=== PATIENT | female | born 1945 | race Caucasian/White ===

== ENCOUNTER 2018-05-27 16:22 | Emergency (ER) | payer OTHER ==
[~2018-05-27] VITALS: Ht 160 cm; Wt 70.8 kg
[~2018-05-27 16:22] MED LIST: ACETAMINOPHEN-1 EAC1 PO; BRIMONIDINE TAR1 BO1 OP; CIPRO500 MG PO; FLAGYL500 MG PO; FLEXERIL PO; MEDROLDOSEPACK PO; NORCO 5-325 TA1 EACH PO; PENICILLIN V P500 MG PO; XANAX 0.5 MG0.5 MG PO
[2018-05-27] MEDS ORDERED: NORCO 5-325 TA1 EACH PO (16:48)
[2018-05-27 16:51] LABS: ABSOLUTE EOSINOPHILS 0.2 thou/uL (0.0-0.7); ABSOLUTE LYMPHOCYTES 2.6 thou/uL (0.8-5.3); ABSOLUTE MONOCYTES 0.5 thou/uL (0.0-1.2); ABSOLUTE NEUTROPHILS 3.3 thou/uL (1.6-8.1); BASOPHILS 0.2 %; EOSINOPHILS 2.5 %; HEMATOCRIT 37.4 % (37.0-47.0); HEMOGLOBIN 12.5 gm/dL (12.0-15.0); LYMPHOCYTES 39.4 %; MCH 30.7 pg (26.0-34.0); MCHC 33.5 g/dL (28.0-37.0); MCV 91.5 fL (80.0-100.0); MPV 8.9 fl. (7.2-11.1); NUCLEATED RBCS 0 /100WBC; PLATELET COUNT* 326 thou/uL (150-400); POLYS 49.9 %; RBC 4.08 mil/uL (4.20-5.00); RDW-CV 14.3 % (10.5-14.5); WBC 6.7 thou/uL (4.0-11.0)
[2018-05-27 17:00] LABS: ANION GAP 10 mmol/L (7-16); BUN 13 mg/dL (7-18); CALCIUM 9.4 mg/dL (8.5-10.1); CHLORIDE 102 mmol/L (98-107); CO2 27 mmol/L (21-32); CREATININE 0.7 mg/dL (0.6-1.3); GLUCOSE 104 mg/dL (70-99); POTASSIUM 3.3 mmol/L (3.5-5.1); SODIUM 139 mmol/L (136-145)
[2018-05-27 17:10] LABS: ALBUMIN 3.9 g/dL (3.4-5.0); ALKALINE PHOSPHATASE 104 U/L (46-116); LIPASE 141 U/L (73-393); MAGNESIUM 2.1 mg/dL (1.8-2.4); NT-PRO BRAIN NAT PEPTIDE 1952 pg/mL (<300); SGOT 15 U/L (15-37); SGPT 19 U/L (30-65); TOTAL BILIRUBIN 0.3 mg/dL (<0.1-1.0); TOTAL PROTEIN 7.8 g/dL (6.4-8.2); TROPONIN-I LEVEL <0.06 ng/mL (<0.06)
[2018-05-27 18:32] VITALS: BP 132/74
--- NOTE | 2018-05-28 14:54 | EKG ---
[place] [address] ELECTROCARDIOGRAM REPORT Name: CHANGE MANAGEMENT SPECIALISTRICARDO Room: [facility]#: [id number] Admission: 05/27/18 Attend Phys: Discharge: 05/27/18 Date of : 47 Report #: [id number] THIS REPORT FOR: //name// [facility] ED Test Date: 2018-05-27 Test Time: 16:27:36 Pat Name: RICARDO GRAMAJO Department: Room: Gender: F Furniture Inspector: Chloe HOANG : 1945 Requested By: Jose De Jesus Foreman Order Number: [id number] MD: Daniel Chen Measurements Intervals [place] Rate: 94 P: 98 AK: 173 QRS: -44 QRSD: 152 T: 117 QT: 414 QTc: 518 Interpretive Statements Sinus rhythm Multiple premature complexes, vent & supraven Left bundle branch block Compared to ECG 07/14/2016 10:30:43 No significant changes Electronically Signed On 05-28-2018 14:54:09 [employer] by Daniel Chen [email or web address] <ELECTRONICALLY SIGNED> By: Daniel Chen MD, [facility] 05/28/18 1454 1627 26 Daniel Chen MD, [facility] /EPI
== END 2018-05-27 18:33 | disposition left against medical advice (07) ==
LOC: M.ERS 16:22
PROVIDERS: Emergency Medicine Emergency Medical Services
DX: R07.89 Other chest pain (principal); K58.9 Irritable bowel syndrome, unspecified; E78.5 Hyperlipidemia, unspecified; J44.9 Chronic obstructive pulmonary disease, unspecified; F17.210 Nicotine dependence, cigarettes, uncomplicated; Z90.710 Acquired absence of both cervix and uterus; Z88.1 Allergy status to other antibiotic agents; Z90.49 Acquired absence of other specified parts of digestive tract

== ENCOUNTER → 2018-08-17 | Outpatient (CLI) | payer OTHER ==
--- NOTE | 2018-08-17 11:32 | CARDNUC ---
[place] [address] CARDIAC NUCLEAR IMAGING REPORT Name: RICARDO GRAMAJO Room: [facility]#: [id number] Admission: 08/17/18 Attend Phys: Oscar Olivares, Discharge: Date of : 47 Date of Service: 08/17/18 1132 Report #: [id number] THIS REPORT FOR: //name// APPROVED REPORT Study performed: 08/17/2018 07:45:00 Indication: Chest pain, Arrythmias. Patient Location: Out-Patient Stress Tech: Harini Joseph Stress Nurse: Kathy Juan RN Ht: 5 ft 3 in Wt: 156 lbs BSA: 1.74 m2 BMI: 27.63 Medical History Medical History: Angina, Arrhythmia, COPD, Current Smoker, No history of CAD, SOB, LBBB, Alcoholism. Medications: N/A Allergies: Erythromycin, Levofloxacin, Ciprofloxacin, Bimatoprost, Simvastatin, Citalopram. Cardiac Risk Factors: Age, Current Smoker, FHX of CAD, SOB, COPD, Alcoholism. Previous Cardiac Procedures: None Pretest Chest Pain Characteristics: No chest pain Exercise History: Sedentary Physical Disabilities: LBBB, Knees. Meds Held (24 hrs): N/A Resting Data Rest SPECT myocardial perfusion imaging was performed in supine position 30 minutes following the intravenous injection of 10.6 mCi of Tc-99m Sestamibi. Time of rest injection: 08:15 The images were gated to evaluate regional wall motion and calculate left ventricular ejection fraction. Administration Route: IV Administration Site: Right Wrist Pharmacologic Stress Pharmacologic stress test was performed by injecting Regadenoson 0.4 mg IV push over 10-15 seconds immediately followed by the intravenous injection of 34.7 mCi of Tc-99m Sestamibi. Time of stress injection: 09:45 Administration Route: [place] [address] CARDIAC NUCLEAR IMAGING REPORT Name: AVILARICARDO JETT E Room: [facility]#: [id number] Admission: 08/17/18 Attend Phys: Oscar Olivares, Discharge: Date of : 47 Date of Service: 08/17/18 1132 Report #: [id number] Administration Site: Right Wrist Heart Rate at time of stress injection: 107 bpm. Gated Stress SPECT was performed 40 minutes after stress injection. The images were gated to evaluate regional wall motion and calculate left ventricular ejection fraction. Prone imaging was performed. Stress Test Details Stress Test: Pharmacologic stress testing performed using 0.4 mg of regadenoson per 5 mL given IV over 10 seconds. Reason for pharmacologic stress test: LBBB, Knees.. HR Max Heart Rate (APMHR): 148 bpm Resting HR: 86 bpm Target HR (85% APMHR): 125 bpm Max HR Achieved: 107 bpm % of APMHR: 72 Recovery HR: 100 bpm BP Resting BP: 134/73 mmHg Max BP: 135/72 mmHg Recovery BP: 139/73 mmHg ECG Resting ECG: Sinus Rhythm, LBBB Stress ECG: Sinus Rhythm, LBBB ST Change: None Arrhythmia: None Recovery ECG: Sinus Rhythm, LBBB Recovery ST Change: None Recovery Arrhythmia: None Clinical Reason for Termination: Completed protocol Stress Symptoms: Nausea, Lightheaded, Neck pain. Exercise duration: 0 min 0 sec Exercise capacity: 1.00 METs The patient tolerated Lexiscan infusion without significant symptoms. Nurse Comments 73 year old female presented with recent HX of CP, Arrythmias and known LBBB. Patient is an alcoholic with COPD and reports bad knees with bone on bone. Patient tolerated sitting Lexiscan well. Recovery unremarkable with PO caffeine. Patient escorted by staff to Nuclear Medicine for images. Patient stable [place] [address] CARDIAC NUCLEAR IMAGING REPORT Name: AUTOCAD DETAILERRICARDO Room: [facility]#: [id number] Admission: 08/17/18 Attend Phys: Oscar Olivares, Discharge: Date of : 47 Date of Service: 08/17/18 1132 Report #: [id number] drea. Stress ECG Conclusion The baseline 12-lead EKG shows sinus rhythm with left bundle-branch block. EKGs obtained during and post Lexiscan infusion show sinus rhythm and sinus tachycardia with left bundle-branch block. There were no significant stress-induced arrhythmias. Study Quality Study: Good Artifact: Mild Breast artifact Study Data At rest, the left ventricular ejection fraction was 20%.. Post stress, the left ventricular ejection was 25%.. TID = 1.02. The left ventricle is noted to be moderately dilated. Perfusion There is mild photopenia in the anterior wall on both rest and stress images consistent with breast attenuation artifact. No reversible defects were identified. Wall Motion There is severe global hypokinesis. There is severe left ventricular systolic dysfunction. Nuclear Conclusion ECG Findings: non-diagnostic Clinical Findings: negative for ischemia Nuclear Findings: negative for ischemia Exercise Capacity: not assessed Left Ventricular Function: abnormal Myocardial perfusion images show no reversible defects to suggest.. Photopenia in the anterior wall on both rest and stress images is consistent with breast attenuation artifact. There is severe left ventricular systolic dysfunction. The left ventricle is dilated. There is global hypokinesis. Findings are consistent with a nonischemic cardiomyopathy. This is considered to be a high risk study based on severe left ventricular systolic motion. <Conclusion> The baseline 12-lead EKG shows sinus rhythm with left bundle-branch block. EKGs obtained during and post Lexiscan [place] [address] CARDIAC NUCLEAR IMAGING REPORT Name: AUTOCAD DETAILERRICARDO [id number] Admission: 08/17/18 Attend Phys: Oscar Olivares, Discharge: Date of : 47 Date of Service: 08/17/18 1132 Report #: [id number] rhythm and sinus tachycardia with left bundle-branch block. There were no significant stress-induced arrhythmias. <ELECTRONICALLY SIGNED> By: Jesús Tinajero MD, FACC 08/17/18 1132 31 113 Jesús Tinajero MD, FACC /INF
== END ==
LOC: M.NUC 06-17 14:56 → M.CRD 07-05 13:00 → M.NUC 07-05 13:00
DX: I44.7 Left bundle-branch block, unspecified (principal); I20.8 Other forms of angina pectoris; F17.200 Nicotine dependence, unspecified, uncomplicated; J44.9 Chronic obstructive pulmonary disease, unspecified; I49.9 Cardiac arrhythmia, unspecified; Z88.8 Allergy status to other drugs, medicaments and biological substances; Z72.89 Other problems related to lifestyle

== ENCOUNTER → 2018-08-19 | Outpatient (CLI) | payer OTHER | LOC: M.RAD 16:27 | DX: J90 Pleural effusion, not elsewhere classified (principal); R91.8 Other nonspecific abnormal finding of lung field; I87.8 Other specified disorders of veins; J44.9 Chronic obstructive pulmonary disease, unspecified; Z88.1 Allergy status to other antibiotic agents; Z88.8 Allergy status to other drugs, medicaments and biological substances ==

== ENCOUNTER → 2018-08-27 | Outpatient (CLI) | payer OTHER ==
[2018-08-27 09:07] LABS: CALCIUM 9.3 mg/dL (8.5-10.1); CREATININE 0.9 mg/dL (0.6-1.3)
== END ==
LOC: M.LAB 08:29
PROVIDERS: Internal Medicine Cardiovascular Disease
DX: I50.9 Heart failure, unspecified (principal)

== ENCOUNTER → 2018-09-21 | Outpatient (CLI) | payer OTHER ==
[~2018-09-21] VITALS: Ht 160 cm; Wt 69.4 kg
[~2018-09-21] MED LIST changes: +AMOXICILLIN875 MG; +CARVEDILOL3.125 MG PO; +KLOR-CON 1010 MEQ; +LASIX 20 MG TAB20 MG; +LISINOPRIL2.5 MG PO
[2018-09-21 08:41] VITALS: BP 106/61
[2018-09-21 08:50] LABS: HEMATOCRIT 39.7 % (37.0-47.0); HEMOGLOBIN 13.2 gm/dL (12.0-15.0); MCHC 33.2 g/dL (28.0-37.0); MCV 87.3 fL (80.0-100.0); MPV 9.7 fl. (7.2-11.1); RBC 4.55 mil/uL (4.20-5.00); RDW-CV 13.8 % (10.5-14.5); WBC 7.1 thou/uL (4.0-11.0)
[2018-09-21 09:04] LABS: APTT 26.4 Seconds (25.0-31.3)
[2018-09-21 09:15] LABS: ALBUMIN 3.9 g/dL (3.4-5.0); ALKALINE PHOSPHATASE 91 U/L (46-116); ANION GAP 11 mmol/L (7-16); BUN 17 mg/dL (7-18); CALCIUM 9.4 mg/dL (8.5-10.1); CHLORIDE 102 mmol/L (98-107); CHOLESTEROL 233 mg/dL (<200); CO2 27 mmol/L (21-32); CREATININE 0.9 mg/dL (0.6-1.3); GLUCOSE 130 mg/dL (70-99); HDL CHOLESTEROL 96 mg/dL (>40); LDL CHOLESTEROL 124 mg/dL (<100); NT-PRO BRAIN NAT PEPTIDE 2917 pg/mL (<300); SERUM ASSESSMENT Clear; SGOT 18 U/L (15-37); SGPT 21 U/L (30-65); SODIUM 140 mmol/L (136-145); TC:HDL 2.4 Ratio (Not establshd); TOTAL BILIRUBIN 0.5 mg/dL (<0.1-1.0); TRIGLYCERIDE 69 mg/dL (<150); VLDL 14 mg/dL (<40)
--- NOTE | 2018-09-21 11:31 | EKG ---
[place] [address] ELECTROCARDIOGRAM REPORT Name: LIGHTING ADVISER,RICARDO Almeida Room: [facility]#: [id number] Admission: 09/21/18 Attend Phys: Oscar Olivares MD Discharge: Date of : 47 Report #: [id number] THIS REPORT FOR: //name// [facility] Test Date: 2018-09-21 Test Time: 09:53:30 Pat Name: RICARDO GRAMAJO Department: Room: Gender: F Alteration Inspector: FLAKO : 1945 Requested By: Oscar Olivares Order Number: [id number] Reading MD: Oscar Olivares Measurements Intervals [place] Rate: 84 P: 63 DC: 159 QRS: -44 QRSD: 159 T: 122 QT: 450 QTc: 533 Interpretive Statements Sinus rhythm Left bundle branch block Compared to ECG 05/27/2018 16:27:36 No significant changes Electronically Signed On 09-21-2018 11:31:07 CDT by Oscar Olivares [email or web address] <ELECTRONICALLY SIGNED> By: Oscar Olivares MD, [facility] 09/21/18 1131 0953 [id number] Oscar Olivares MD, [facility] /EPI
--- NOTE | 2018-10-07 15:01 | CARD ---
[address] [address] CARDIAC CATH REPORT Name: RICARDO GRAMAJO Room: [facility]#: [id number] Admission: 09/21/18 Attend Phys: Oscar Olivares MD Discharge: Date of : 47 Report #: [id number] THIS REPORT FOR: //name// APPROVED REPORT Study performed: 09/21/2018 09:22:03 Patient Details The patient is a 73 year-old female Event Personnel Oscar Olivares Medical Technologist Prn, Viji Durham RN RN, Enoc Jerez RENTAL CAR DELIVERER Monitor, Demarco Justice RENTAL CAR DELIVERER Scrub Procedure Narrative A 6fr Ultimum Sheath sheath was inserted into the . Coronary angiography was performed using coronary diagnostic catheters. The right coronary system was accessed and visualized with a JL4 5frJR4 5fr catheter. The left coronary system was accessed and visualized with a JL4 5fr catheter. The left ventricle was accessed and visualized with a Diagnostic - 6fr ang pig catheter. The patient tolerated the procedure well and there were no complications associated with the procedure. Intraoperative Conscious Sedation Sedation start time: 1015 Case end Time: 1031 Fentanyl 25 mcg Versed 3 mg Fluoro Time: 5.0 minutes Dose: DAP 32117 cGycm2 383 mGy Contrast Type and Amount: Visipaque 150 ml Diagnostic Cath Left Main normal LAD mid body 40% Diagonal 1 normal Diagonal 2 normal Diagonal 3 normal Circumflex mid 40% OM1 normal OM2 normal Right Coronary normal R PDA normal RPLV small,normal [facility] [address] [place] [address] CARDIAC CATH REPORT Name: RICARDO GRAMAJO Room: [facility]#: [id number] Admission: 09/21/18 Attend Phys: Oscar Olivares MD Discharge: Date of : 47 Report #: [id number] Left Ventriculography The left ventricle is normal in size with reduced contractility. The left ventricular ejection fraction is estimated to be 40-45%. Left ventricular wall motion abnormalities are not present. There is no mitral insufficiency. Hemodynamics The aortic pressure is 115/59 mmHg with a mean of 90 mmHg. The left ventricular pressure is 132/1 mmHg with a mean of mmHg. The left ventricular end diastolic pressure is 13 mmHg. Conclusion 1. Nonischemic cardiomyopaty 2. nonobstructive, moderate CAD 3. EF moderately reduced Recommendations Aggressive Medical Therapy <ELECTRONICALLY SIGNED> By: Oscar Olivares MD, FAC 10/07/18 1501 1501 1501Oscar Olivares MD, FACC /INF
== END | disposition home or self-care (01) ==
LOC: M.CL 07:59
PROVIDERS: Internal Medicine Cardiovascular Disease
DX: I25.10 Atherosclerotic heart disease of native coronary artery without angina pectoris (principal); I42.9 Cardiomyopathy, unspecified; I50.1 Left ventricular failure, unspecified; E78.5 Hyperlipidemia, unspecified; J44.9 Chronic obstructive pulmonary disease, unspecified; F17.210 Nicotine dependence, cigarettes, uncomplicated; Z90.49 Acquired absence of other specified parts of digestive tract; Z90.710 Acquired absence of both cervix and uterus; Z87.19 Personal history of other diseases of the digestive system; Z98.890 Other specified postprocedural states; Z79.899 Other long term (current) drug therapy; Z91.041 Radiographic dye allergy status; Z88.8 Allergy status to other drugs, medicaments and biological substances; Z79.01 Long term (current) use of anticoagulants

== ENCOUNTER → 2018-10-14 | Outpatient (CLI) | payer OTHER ==
[2018-10-14 09:33] LABS: CALCIUM 8.9 mg/dL (8.5-10.1); CREATININE 0.8 mg/dL (0.6-1.3)
== END ==
LOC: M.LAB 08:49
PROVIDERS: Internal Medicine Cardiovascular Disease
DX: R00.2 Palpitations (principal)

== ENCOUNTER → 2019-10-25 | Outpatient (CLI) | payer OTHER | LOC: M.RAD 16:27 | DX: I50.42 Chronic combined systolic (congestive) and diastolic (congestive) heart failure (principal); I70.0 Atherosclerosis of aorta ==

== ENCOUNTER → 2021-03-06 | Outpatient (CLI) | payer OTHER | LOC: M.RAD 01-22 11:12 | PROVIDERS: ATTEND Registered Nurse Diabetes Educator | DX: Z12.31 Encounter for screening mammogram for malignant neoplasm of breast (principal); N63.21 Unspecified lump in the left breast, upper outer quadrant ==

== ENCOUNTER → 2021-03-19 | Outpatient (CLI) | payer OTHER | LOC: M.RAD 07:45 | PROVIDERS: ATTEND Registered Nurse Diabetes Educator | DX: N63.23 Unspecified lump in the left breast, lower outer quadrant (principal); N60.02 Solitary cyst of left breast; M81.0 Age-related osteoporosis without current pathological fracture; M85.89 Other specified disorders of bone density and structure, multiple sites; R92.8 Other abnormal and inconclusive findings on diagnostic imaging of breast; N64.89 Other specified disorders of breast ==